=== PATIENT | male | born 1995 | race African-American/Black ===

== ENCOUNTER 2017-03-19 18:20 | Emergency (ER) | payer MEDICAID ==
[~2017-03-19] VITALS: Ht 172.7 cm; Wt 61.2 kg
[2017-03-19] MEDS ORDERED: KETOROLAC 30 MG/ML INJ. IV ONE (19:00)
--- NOTE | 2017-03-19 19:12 | PHYS DOC ---
Past Medical History Past Medical History: Other Additional Past Medical Histor: CROHNS Past Surgical History: No Surgical History Smoking: Cigarettes Alcohol Use: None Drug Use: Marijuana Adult General Chief Complaint Chief Complaint: CHEST PAIN-NON CARDIAC NATURE HPI HPI he is a pleasant 21-year-old male with a remote history of Crohn's disease on no medications who presents with pleuritic chest pain that has been intermittent for 6 months. He describes as an sharp pain readying from his left axilla lower chest wall to the right lower chest wall. It is short-lived lasting anywhere from 3-5 minutes worse with chest wall movement and breathing. Patient denies any direct trauma, denies any fevers, chills, weight loss or night sweats. Patient denies any productive cough but does have a cough that is nonproductive in nature. He denies any travel outside the country or other PE risk factors patient says he has not taken anything [id number] to treat his symptoms. He does smoke per one and cigarettes a lot he says. He is relatively sedentary and does not work except for taking care of his single children at home. Patient denies any prior to the same other than with: 6 month. He presented tonight because the pain was so severe with breathing it was hard for him to take a deep breath in. Review of Systems Review of Systems Constitutional: Denies fever or chills [] Eyes: Denies change in visual acuity, redness, or eye pain [] HENT: Denies nasal congestion or sore throat [] Respiratory: He does describe a nonproductive cough and mild shortness of breath with pleuritic chest pain when it occurs. Cardiovascular: No additional information not addressed in HPI [] GI: Denies abdominal pain, nausea, vomiting, bloody stools or diarrhea [] : Denies dysuria or hematuria [] Musculoskeletal: Denies back pain or joint pain [] Integument: Denies rash or skin lesions [] Neurologic: Denies headache, focal weakness or sensory changes [] Endocrine: Denies polyuria or polydipsia [] All other systems were reviewed and found to be within normal limits, except as documented in this note. Current Medications Current Medications Current Medications Medications (Trade) Dose Ordered Sig/Deloris Start Time Stop Time Status Last Admin Dose Admin Ketorolac Tromethamine (Toradol) 30 mg 1X ONCE 03/19/17 19:00 03/19/17 19:01 DC 03/19/17 19:07 30 MG Allergies Allergies Allergies Coded Allergies Type Severity Reaction Last Updated Verified No Known Drug Allergies 03/19/17 No Physical Exam Physical Exam Other vital signs on the chart within normal limits. Constitutional: Well developed, well nourished, no acute distress, non-toxic appearance. [] HENT: Normocephalic, atraumatic, bilateral external ears normal, oropharynx moist, no oral exudates, nose normal. [] Eyes: PERRLA, EOMI, conjunctiva normal, no discharge. [] Neck: Normal range of motion, no tenderness, supple, no stridor. [] Cardiovascular:Heart rate regular rhythm, no murmur []she has no chest wall tenderness to palpation, he is not splinting is no accessory muscle use on examination, there is no evidence of trauma. Lungs & Thorax: Bilateral breath sounds clear to auscultation wheezes rhonchi rales or crackles [] Abdomen: Bowel sounds normal, soft, no tenderness, no masses, no pulsatile masses. [] Skin: Warm, dry, no erythema, no rash. [] Extremities: No tenderness, no cyanosis, no clubbing, ROM intact, no edema. [] Neurologic: Alert and oriented X 3, normal motor function, normal sensory function, no focal deficits noted. [] Psychologic: Affect normal, judgement normal, mood normal. [] Current Patient Data Vital Signs Vital Signs Date Time Temp Pulse Resp B/P (MAP) Pulse Ox O2 Delivery O2 Flow Rate FiO2 03/19/17 18:25 97.7 94 14 120/74 (89) 100 Room Air 97.7 EKG EKG []EKG time 635 this is a normal sinus rhythm EKG with a heart rate of 74 there is a RI interval 146, QRS width is normal 88, QTc is normal at 402. There is no ST segment T-wave changes consistent with acute cord ischemia there is no evidence of pericarditis with ST segment elevation in all leads and RI depression. There is no evidence of Veazv-Hllgqnhna-Vagys Brugada or long QT syndrome. Radiology/Procedures Radiology/Procedures [] Course & Med Decision Making Course & Med Decision Making Pertinent Labs and Imaging studies reviewed. (See chart for details) []Patient's PA and lateral chest x-ray read by me completed at 7:15 PM 2016 demonstrates hyperinflated lungs but no evidence of pneumothorax, no pneumomediastinum, no pulmonary infiltrate or pleural effusion, there are no rib fractures. His EKG is also unremarkable given patient's age duration of symptoms I believe this pleuritic chest pain patient be prescribed anti-inflammatories and is to follow up with his primary care doctor for referral back to cardiology and a possible heart monitor given duration of symptoms. My discharge plan Although you have low risk chest pain you May still have heart disease despite having an apparent negative workup today. I would advise that you follow-up with your primary care doctor this week to arrange follow-up with her division sergeant. The division sergeant will help stratify your risk for heart injury in the future. Follow up: In addition patient is asked to followup with their primary doctor, within a week for followup examination and to address patient's ongoing medical conditions. Because patient does not have a regular medical doctor, the [facility] Resource Sheet will be provided to establish care primary care. Patient is advised that in the Emergency Department primary complaints are addressed and only in light of known signs and symptoms. Patient should return immediately to the emergency department if new signs and symptoms develop or patient's condition worsens in any way. At time of discharge patient was in stable condition and had verbalized understanding of the discharge instructions. Dragon Disclaimer Dragon Disclaimer This electronic medical record was generated, in whole or in part, using a voice recognition dictation system. Departure Departure Impression: Primary Impression: Chest pain Additional Impression: Pleurisy Disposition: 01 HOME, SELF-CARE Condition: IMPROVED Patient Instructions: Chest Pain (Nonspecific), Chest Wall Pain, Pleurisy Additional Instructions: discharge: I've spoken with the patient and/or caregivers. I've explained the patient's condition, diagnosis and treatment plan based on information available to me at this time. I've answered the patient's and/or caregivers questions and addressed any concerns. The patient and/or caregivers have a good understanding the patient's diagnosis, condition and treatment plan as can be expected at this point. Vital signs have been stabilized. The patient's condition is stable for discharge from the emergency department. The patient will pursue further outpatient evaluation with her primary care provider or other designated consulting physician as outlined in the discharge instructions. Patient and/or caregivers are agreeable to this plan of care and follow-up instructions have been explained in detail. The patient and/or caregivers have received these instructions in written format and expressed understanding of these discharge instructions. The patient and her caregivers are aware that if any significant change in condition or worsening of symptoms should prompt him to immediately return to this of the closest emergency department. If an emergent department is not readily available I would encourage him to call 911. Scripts Naproxen (NAPROSYN) 500 Mg Tablet 1 TAB PO BID, #14 TAB 1 Refill Prov: JOSÉ MULLER MD 03/19/17 Problem Qualifiers JOSÉ MULLER MD Mar 19, 2017 19:12
[2017-03-19] MEDS ORDERED: NAPR-683 PO (19:39)
[2017-03-19 19:47] VITALS: BP 100/54
--- NOTE | 2017-03-20 07:08 | EKG ---
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
--- NOTE | 2017-03-20 09:07 | RAD ---
PA and lateral chest. History: Left-sided chest pain PA and lateral views were taken of the chest. Lungs are clear. Heart is normal in size without heart failure. There is no pleural effusion. Impression: 1. No acute chest disease.
== END 2017-03-19 19:50 | disposition home or self-care (01) ==
LOC: ER 18:20
DX: R09.1 Pleurisy (principal); R07.81 Pleurodynia; R07.89 Other chest pain; F17.210 Nicotine dependence, cigarettes, uncomplicated; K50.90 Crohn's disease, unspecified, without complications; F12.10 Cannabis abuse, uncomplicated
CPT/HCPCS: 71020; 93005; 96374; 99284; J1885

== ENCOUNTER → 2017-05-03 | Outpatient (CLI) | payer MEDICAID | END | disposition home or self-care (01) | LOC: ECHO 10:15 | DX: R07.9 Chest pain, unspecified (principal) | CPT/HCPCS: 93306 ==